=== PATIENT | male | born 1960 | race Caucasian/White ===

== ENCOUNTER → 2021-01-07 | Emergency (ER) | payer OTHER ==
[~2021-01-07] VITALS: Ht 182.9 cm; Wt 67.2 kg
[~2021-01-07] MED LIST: BACITRACIN ZINC TOPICAL OINT PACKET. TP ONE; CEPH750C9 PO; CEPHALEXIN 250 MG CAPSULE PO ONE; CETI1TAB7 PO; CYAN10002 IJ; ESOM40CA PO; IMMU2VIA SQ; LIDOCAINE 2% 20 ML VIAL. IJ ONE; LOPE1LIQ7 PO; METRONIDAZOLE 1% TOP; MONT10TA80 PO; TRIAMCINOLONE NS
--- NOTE | 2021-01-07 18:53 | PHYS DOC ---
Past History Past Medical History: GERD, Hypotension, Sinusitis, Other Past Surgical History: Other Alcohol Use: Heavy Drug Use: None General Adult HPI: HPI: "...I was chopping up with a pepper... And got this left thumb.." Patient is a 60 year old male who presents with above hx and complaints of left thumb laceration. Laceration is to the lateral edge of left thumb approximately 1 cm and into the nail. Distal neurovascular is intact. Is up-to-date with vaccinations. No recent travel. No history of specific ill contacts. Does have history of immunosuppression and receives injections every 2 to 4 weeks.. Normally follows at [facility]. As noted patient was seen here on 05/23/2015 for a similar type injury when he cut his left finger. At that time he was slicing up a squash. Patient currently is able to move thumb without difficulty. Patient is right-hand dominant. Patient does not smoke. Does not occasionally drink 2 drinks of alcohol every night. Options of treatment discussed patient has elected to have laceration sutured. Review of Systems: Review of Systems: Constitutional: Denies fever or chills Eyes: Denies change in visual acuity HENT: Denies nasal congestion or sore throat Respiratory: Denies cough or shortness of breath Cardiovascular: Denies chest pain or edema GI: Denies abdominal pain, nausea, vomiting, bloody stools or diarrhea : Denies dysuria Musculoskeletal: Denies back pain or joint pain Integument: Denies rash. Patient complains of left thumb laceration Neurologic: Denies headache, focal weakness or sensory changes Endocrine: Denies polyuria or polydipsia Lymphatic: Denies swollen glands Psychiatric: Denies depression or anxiety Family History: Family History: Noncontributory to presentation Current Medications: Current Meds: See nursing for home meds Allergies: Allergies: Allergies Coded Allergies Type Severity Reaction Last Updated Verified No Known Drug Allergies 05/23/15 No Physical Exam: PE: Constitutional: Mild acute distress, non-toxic appearance. [] HENT: Normocephalic, atraumatic, bilateral external ears normal, oropharynx moist, no oral exudates, nose normal. [] Eyes: PERRLA, EOMI, conjunctiva normal, no discharge. [] Neck: Normal range of motion, no tenderness, supple, no stridor. [] Cardiovascular:Heart rate regular rhythm, no murmur [] Lungs & Thorax: Bilateral breath sounds equal at apex auscultation [] Abdomen: Bowel sounds normal, soft, no tenderness, no masses, no pulsatile masses. [] Skin: Warm, dry, no erythema, no rash. Laceration left thumb as per HPI. Does have dystrophic fingernails Back: No tenderness, no CVA tenderness. [] Extremities: No tenderness, no cyanosis, no clubbing, ROM intact, no edema. [] Neurologic: Alert and oriented X 3, normal motor function, normal sensory function, no focal deficits noted. [] Psychologic: Affect anxious, judgement normal, mood normal. [] EKG: EKG: [] Radiology/Procedures: Radiology/Procedures: [] Heart Score: C/O Chest Pain: N/A Risk Factors: Risk Factors: DM, Current or recent (<one month) smoker, HTN, HLP, family history of CAD, obesity. Risk Scores: Score 0 - 3: 2.5% MACE over next 6 weeks - Discharge Home Score 4 - 6: 20.3% MACE over next 6 weeks - Admit for Clinical Observation Score 7 - 10: 72.7% MACE over next 6 weeks - Early Invasive Strategies Course & Med Decision Making: Course & Med Decision Making Pertinent Labs and Imaging studies reviewed. (See chart for details) Procedure note-laceration repair-patient washed hands with running water in the sink continuously. Then irrigated hand with saline and placed a digital block of left thumb as well as localized injection with 2% lidocaine.. I irrigated laceration and range of motion. Placed 3-simple 4-0 nylon sutures. Dressing applied with antibiotic ointment. Patient keep the dressing clean and dry. May wear current dressing 3 days but if it becomes soiled or wet must be removed immediately. Once initial dressing removed start applying Polysporin 4 times a day. Will start patient on Keflex 500 mg 3 times a day because of his history of immune compromised deficit. Monitor closely for infection. Return if any concerns. Tylenol and ibuprofen for pain. [] Billy Disclaimer: Billy Disclaimer: This electronic medical record was generated, in whole or in part, using a voice recognition dictation system. Departure Departure: Referrals: PCP,UNKNOWN (PCP) Scripts Cephalexin (KEFLEX) 750 Mg Capsule 500 MG PO TID for lac for 5 Days, #15 CAP Prov: ALINA GRIER MD 01/07/21 ALINA GRIER MD Jan 07, 2021 18:53
[2021-01-07 18:55] VITALS: BP 109/55
== END ==
LOC: ER 18:49
DX: S61.012A Laceration without foreign body of left thumb without damage to nail, initial encounter (principal); F10.20 Alcohol dependence, uncomplicated; Y90.9 Presence of alcohol in blood, level not specified; W26.0XXA Contact with knife, initial encounter; Y93.89 Activity, other specified; Y92.89 Other specified places as the place of occurrence of the external cause; Y99.8 Other external cause status; K21.9 Gastro-esophageal reflux disease without esophagitis
CPT/HCPCS: 12001; 99283; J2001